=== PATIENT | male | born 1970 | race Hispanic/Latino ===

== ENCOUNTER 2021-02-12 00:22 | Emergency (ER) | payer SELFPAY ==
[2021-02-12] MEDS ORDERED: Naloxone HCl 2 mg/2 ml Syringe ONE (00:41)
[2021-02-12] MEDS ORDERED: Dextrose 50% Abboject 50 ML SYRINGE ONE ×2 (00:41→01:15)
[2021-02-12] MEDS ORDERED: Sodium Chloride 0.9% 1,000 ML ONE (00:41)
[2021-02-12 01:00] LABS: Alcohol Less than 10 mg/dL (Less than 10)
[2021-02-12 01:03] LABS: ALT (SGPT) 52 U/L (8-55); AST (SGOT) 81 U/L (5-34); Albumin 1.9 g/dL (3.4-4.8); Alkaline Phosphatase 224 U/L (40-110); BUN (Urea Nitrogen) 77 mg/dL (8.4-25.7); Bilirubin, Total 16.8 mg/dL (0.2-1.2); Calc. Creatinine Clearance 0 mL/min (70-130); Calcium 7.8 mg/dL (7.8-10.44); Chloride 104 mmol/L (98-107); Globulin 3.1 g/dL (2.4-3.5); Glucose 75 mg/dL (80-115); Potassium 5.7 mmol/L (3.5-5.1)
[2021-02-12] MEDS ORDERED: Insulin Regular 300 UNITS/3 ML VIAL ONE (01:15)
[2021-02-12 01:25] LABS: PTT 112.3 sec (22.9-36.1); Prothrombin Time 59.6 sec (12.0-14.7)
[2021-02-12 01:37] LABS: Bilirubin Large (Negative); Blood, Urine Negative (Negative); Clarity Clear (Clear); Glucose, Urine (Dipstick) Negative (Negative); Ketone, Urine Negative (Negative); Leukocyte Negative (Negative); Nitrite Negative (Negative); Protein, Urine (Dipstick) Trace mg/dL (Neg-Trace); Specific Gravity, Urine 1.025 (1.005-1.030); Urobilinogen 0.2 mg/dL (Less than 2)
[2021-02-12 01:39] LABS: Carbon Dioxide Less than 8 mmol/L (23-31); Sodium 126 mmol/L (136-145)
[2021-02-12 01:46] LABS: INR-International Normal Ratio 6.7
[2021-02-12 01:48] LABS: THC/Cannabinoid Screen Not Detected (NotDetected)
[2021-02-12 01:49] LABS: Amphetamine Not Detected (NotDetected); Barbiturates Screen Not Detected (NotDetected); Benzodiazepine Screen Not Detected (NotDetected); Cocaine Metabolite Screen Not Detected (NotDetected); Medtox Control Line Valid? VALID (VALID); Methadone Not Detected (NotDetected); Methamphetamine Not Detected (NotDetected); Opiate Screen Detected (NotDetected); Oxycodone Screen Not Detected (NotDetected); Phencyclidine (PCP) Not Detected (NotDetected); Tricyclic Screen Not Detected (NotDetected)
[2021-02-12] MEDS ORDERED: Phytonadione 10 MG/ML AMP ONE (01:50)
[2021-02-12 01:51] LABS: Acetaminophen Less than 6.0 mcg/mL (10.0-30.0); Salicylate Less than 8.0 mg/dL (15.0-30.0)
[2021-02-12 01:56] LABS: Anisocytosis SLIGHT = 6-15 cells (100X) (0-5/hpf); Band 49 % (5-11); Eosinophils 1 % (0-10); Hemoglobin 8.5 g/dL (14.0-18.0); Lymphocytes 11 % (21-51); MDiff Complete? YES; Macrocytosis SLIGHT = 6-15 cells (100X) (0-5/hpf); Mean Corpuscular HGB CONC 34.1 g/dL (32.0-36.0); Mean Corpuscular Hemoglobin 38.9 pg (27.0-31.0); Mean Corpuscular Volume 114.3 fL (78.0-98.0); Mean Platelet Volume 9.2 fL (7.4-10.4); Monocytes 6 % (0-10); Neutrophil 33 % (42-75); Platelet Count 29 thou/uL (130-400); Platelet Morphology Comment Appears Decreased; RBC Distribution Width 16.1 % (11.5-14.5); White Blood Cell (WBC) Count 13.1 thou/uL (4.8-10.8)
== END 2021-02-12 02:29 | disposition short-term general hospital (02) ==
LOC: MADERS 00:22 → EDBD 00:22 → MADERS 02:29
DX: R41.82 Altered mental status, unspecified (principal); N17.9 Acute kidney failure, unspecified; E87.5 Hyperkalemia; E87.1 Hypo-osmolality and hyponatremia; D68.9 Coagulation defect, unspecified; R26.9 Unspecified abnormalities of gait and mobility; R18.8 Other ascites; R14.0 Abdominal distension (gaseous); K74.60 Unspecified cirrhosis of liver; Z87.891 Personal history of nicotine dependence; Z79.899 Other long term (current) drug therapy; Z79.891 Long term (current) use of opiate analgesic
CPT/HCPCS: 51702; 80053; 80306; 80307; 81003; 82274; 83605; 84443; 84484; 85025; 85060; 85610; 85730; 86850; 86900; 86901; 87040; 87077; 87086; 87186; 93005; 96365; 96375; J1815; J2310; J3430; J7050